=== PATIENT | female | born 1975 | race Caucasian/White ===

== ENCOUNTER 2023-02-06 16:41 | Emergency (ER) | payer OTHER ==
[~2023-02-06] VITALS: Ht 167.6 cm; Wt 85.3 kg
[2023-02-06 16:59] VITALS: BP_SYST 138; PULSE 84; RESP 18; TEMP 97.3; O2SAT 96
--- NOTE | 2023-02-06 17:05 | NUR ---
PATIENT BIB PARTNER C/O RT HAND CHRONIC CARPAL TUNNEL/NUMBNESS X 2 DAYS. MED HX HTN, CP, SPINAL ARTHRITIS. MULTIPLE SURGERIES. NKA. VSS.
--- NOTE | 2023-02-06 17:16 | NUR ---
DR. HU AT BEDSIDE.
[2023-02-06] MEDS ORDERED: KETOROLAC TROMETHAMINE 60 MG/2 ML VIAL IM ONE (17:30)
--- NOTE | 2023-02-06 17:44 | NUR ---
PATIENT MEDICATED PER MD ORDERS.
[2023-02-06] MEDS ORDERED: NAPR-1172 PO (17:56)
--- NOTE | 2023-02-06 18:10 | NUR ---
Patient given written and verbal discharge instructions and verbalizes understanding. ER MD discussed with patient the results and treatment provided. Patient in stable condition. ID arm band removed. Rx of NAPROXEN given. Patient educated on pain management and to follow up with PMD. Pain Scale 4/10. Opportunity for questions provided and answered. Medication side effect fact sheet provided.
[2023-02-06 18:39] VITALS: BP_SYST 136; PULSE 81; RESP 17; TEMP 98; O2SAT 95
== END 2023-02-06 18:39 | disposition home or self-care (01) ==
LOC: SED 16:41
DX: G56.01 Carpal tunnel syndrome, right upper limb (principal); Z79.899 Other long term (current) drug therapy
CPT/HCPCS: 99283; 96372; J1885